=== PATIENT | male | born 1965 | race Caucasian/White ===

== ENCOUNTER 2019-07-01 17:42 | Emergency (ER) | payer MEDICAID ==
[~2019-07-01] VITALS: Ht 162.6 cm; Wt 67.1 kg
[2019-07-01 17:52] VITALS: BP 142/53
--- NOTE | 2019-07-01 17:56 | NUR ---
PT AMBULATED TO LOBBY WITH STEADY GAIT
--- NOTE | 2019-07-01 18:18 | NUR ---
54 Y/O M C/C OF RUE PAIN DUE TO FALL. PER PT NO LOC. PAIN 03/30. PT NKA. NO HX. NO RX. NO N/V/D.
[2019-07-01] MEDS ORDERED: HYDROcodone/APAP 5/325 MG 1 TAB TAB PO ONE (18:45)
--- NOTE | 2019-07-01 18:50 | NUR ---
PT RIGHT ELBOW PLACED IN LONG ARM POSTERIOR SPLINT AND SLING WITH 4" ORTHO FIBERGLASS, PT ARM PLACED IN SLING AND ADJUSTED TO PT. PT CMS WNL BEFORE AND AFTER, NURSE NOTIFIED
--- NOTE | 2019-07-01 19:12 | NUR ---
REPORT GIVEN TO KATHERINE KING FOR CONTINUITY OF CARE
--- NOTE | 2019-07-01 19:13 | NUR ---
REPORT RECEIVED FROM KATHERINE GE. TRANSFER OF CARE AT THIS TIME. PT SITTING ON EDGE OF BED WITH ARM IN SLING. FRIEND STANDING NEARBY. NO COMPLAINTS AT THIS TIME. AWAITING D/C PAPERWORK AND XR DISC.
[2019-07-01 19:23] VITALS: BP 142/53
--- NOTE | 2019-07-01 19:23 | NUR ---
Patient discharged with v/s stable. Written and verbal after care instructions given and explained. Patient verbalized understanding. Ambulatory with steady gait. All questions addressed prior to discharge. Advised to follow up with PMD/ [facility].
== END 2019-07-01 19:23 | disposition home or self-care (01) ==
LOC: MED 17:42
DX: S42.414A Nondisplaced simple supracondylar fracture without intercondylar fracture of right humerus, initial encounter for closed fracture (principal); W19.XXXA Unspecified fall, initial encounter; Y93.89 Activity, other specified; Y92.89 Other specified places as the place of occurrence of the external cause; Y99.8 Other external cause status
CPT/HCPCS: 29105; 73030; 73080; 99283